=== PATIENT | female | born 1995 | race Caucasian/White ===

== ENCOUNTER 2019-03-19 16:57 | Emergency (ER) | payer OTHER ==
[~2019-03-19] VITALS: Ht 170.2 cm; Wt 113.4 kg
== END 2019-03-19 18:02 | disposition home or self-care (01) ==
LOC: ER 16:57
DX: S81.012A Laceration without foreign body, left knee, initial encounter (principal); Z91.011 Allergy to milk products; W18.09XA Striking against other object with subsequent fall, initial encounter
CPT/HCPCS: 12001; 90471; 90714; 99282-25